=== PATIENT | female | born 1970 ===

== ENCOUNTER → 2020-03-21 | Outpatient (CLI) | payer BC ==
[~2020-03-21] VITALS: Ht 167.6 cm; Wt 65.8 kg
[~2020-03-21] MED LIST: DITROPAN XL10 M1 PO; LISINOPRIL20 MG PO
[2020-03-21 09:48] VITALS: BP 166/65
--- NOTE | 2020-03-21 10:17 | NUR ---
Pain Clinic Assessment: 1. History of Osteoarthritis: Not Applicable History of Rheumatoid Arthritis: Not Applicable 2. Height: 5 ft. 6 in. 167.6 cm. Weight: 145.0 lb. oz. 65.772 kg. Patient's BMI: 23.4 3. Vital Signs: BP: 166/65 Pulse: 80 Resp: 14 Temp: 02 Sat: 98 ECG Mon: 4. Pain Intensity: 8 5. Fall Risk: Dizziness: Y Needs help standing or walking: Y Fallen in the last 3 months: N Fall risk comments: 6. Patient on Blood Thinner: None 7. History of Hypertension: Y 8. Opioid Therapy greater than 6 weeks: N Opiate Contract Signed: 9. Risk Assessment Tool Provided: 5 MODERATE RISK 10. Functional Assessment Tool: 11. Recreational Drug Use: Never Drug Type: Tobacco Use: Current Every Day Smoker Tobacco Type: Cigarettes Amount or Packs/day: 1/2 PACK How Many Years: 33 Alcohol Use: No Frequency: Quant:
--- NOTE | 2020-03-22 10:29 | HPC ---
[facility] [place] [address] PAIN MANAGEMENT CONSULTATION Name: BELINDA BALBUENA Room #: REG MUNA Jose Ramon#: [id number] Admission: 03/21/20 Attend Phys: Osito Marques DO Discharge: Date of : 72 Report #: [id number] THIS REPORT FOR: cc: Arnoldo Medina MD, Alberto MD Johnson,Osito Armas DO ~ DATE OF SERVICE: 03/21/2020 CHIEF COMPLAINT: Low back pain, left buttock pain. HISTORY OF PRESENT ILLNESS: As you know, the patient is a 49-year-old female who reports acute onset of low back pain, left buttock pain that presented 02/23/2020. The patient denies specific injury or trauma that may have led to symptom development. She sought evaluation through the Emergency Department as she was having increase pain. Initial ER visit, she was found to have urinary tract infection and was treated with antibiotics. Apparently, her symptoms did not resolve overnight and the patient then went to second Emergency Department, was evaluated and determined she had kidney stones based on the testing, which showed blood in the urine as well as kidney stones on imaging. She was also diagnosed with suspected lumbar radiculopathy, though this was a secondary diagnosis. The patient at the Emergency Department was referred to our clinic for concerns of lumbar radiculopathy. She has not undergone physical therapy nor has she sought any chiropractic manipulation or massage therapy. She is trialed no avyb-ial-ycwtoyr medications. She was provided hydrocodone at her ER visit and she has been taking that medication without significant benefit. She apparently had some oral steroids at home, tried those medications, but her symptoms did not improve. She makes today's appointment to discuss interventional treatments to address suspected lumbar radiculopathy. The patient indicates today her pain is continuous, steady and constant. She describes the pain as burning, sharp and stabbing. Places current pain score 6/10, daily average at 8/10, worst pain has been 10/10. The patient states her pain is exacerbated with going from standing to sitting position or seated to standing position and walking. Pain is improved with "measured breathing, and just making myself relax." She has been referred to our service by the Emergency Department at [facility] for suspected lumbar radiculopathy with concomitant treatment of therapy for nephrolithiasis. PAST MEDICAL HISTORY: 1. Hypertension. 2. Gallbladder disease. 3. Iatrogenic menopause. 4. Nephrolithiasis. PAST SURGICAL HISTORY: 1. Cholecystectomy. [facility] [address] [place] [address] PAIN MANAGEMENT CONSULTATION Name: BELINDA BALBUENA Room #: REG [facility]#: [id number] Admission: 03/21/20 Attend Phys: Osito Marques DO Discharge: Date of : 72 Report #: [id number] 2. Tubal ligation. 3. Total abdominal hysterectomy. SOCIAL HISTORY: The patient smokes 1/2 to 1 pack tobacco per day, has done so for 33 years. Denies IV or illicit drug use. Denies any chronic alcohol use. 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 She has not been working for the past 2 weeks due to this ongoing pain issue. She is not receiving workmen's compensation nor is she trying to obtain disability benefits. She is not in litigation in regards to pain. She is unaccompanied at today's visit. REVIEW OF SYSTEMS: Positive for fever, night sweats, fatigue and weakness, frequent and recurrent headaches, wearing corrective eyewear, nausea, vomiting, frequent urination, nocturia, incontinence and dribbling to urine, kidney stones, sexual difficulty, left buttock and posterolateral thigh pain. All other review of systems negative per 12-point review of systems other than those listed in history of present illness. Pain impact score 52/70 indicating severe interference of daily activities secondary to pain. ALLERGIES: MORPHINE. CURRENT MEDICATIONS: Lisinopril 20 mg per day, oxybutynin 10 mg once a day. IMAGING: CT lumbar spine obtained on 03/06/2020 shows no evidence of fracture or malalignment. There is gejg-kp-vhxtqyld multilevel spondylosis involving the lower lumbar region. There is mild broad-based disk bulge at L2-L3, L3-L4 with mild central canal narrowing noted at L4-L5. L5-S1 shows moderate disk space narrowing, mild hypertrophy. There is moderate disk osteophyte complex causing ucpp-bj-tkzxolpr bilateral neural foraminal stenosis. There is also noted nephrolithiasis. PHYSICAL EXAMINATION: VITAL SIGNS: Blood pressure 166/65, pulse 80, respiratory rate 14 and unlabored. The patient 98% on room air. Height 5 feet 6 inches tall, weight 145 pounds, BMI calculated 23.4. GENERAL: Well-developed, well-nourished, well-hydrated 49-year-old female, appears older than stated age, smells strongly of tobacco smoke, placing current pain score at 8/10. HEENT: Normocephalic, atraumatic. Pupils are equal, round. Extraocular muscles are intact. She is wearing a mask in compliance with COVID-19 regulations. LUNGS: Appear clear, though there is a prolonged expiratory phase. CARDIOVASCULAR: Regular. No appreciable gallop, no rub. ABDOMEN: Soft. Bowel sounds are present. EXTREMITIES: Show no clubbing, no cyanosis, and no edema. [facility] [place] [address] PAIN MANAGEMENT CONSULTATION Name: BELINDA BALBUENA Room #: REG MUNA Jose Ramon#: [id number] Admission: 03/21/20 Attend Phys: Osito Marques DO Discharge: Date of : 72 Report #: [id number] MUSCULOSKELETAL: Lower extremity strength equal and symmetrical 5/5, intact to light touch from L1 through S2 dermatomes. Seated straight leg raising negative. Supine straight leg raising negative. Shannon's test is negative. Modified Gaenslen's positive for axial low back pain. Ankle clonus negative. Babinski is negative. Gait appears mildly antalgic favoring left lower extremity over right. The patient is using a cane for ambulation, though it does not appear to be medically necessary. ASSESSMENT: 1. Low back pain. 2. Left buttock and posterolateral thigh pain. 3. Nephrolithiasis. 4. Myofascial pain. PLAN: 1. The patient has been referred to our service by the team at [facility]'s ER to address this patient's suspected lumbar radiculopathy. I am unable to elicit any radicular component to the patient's symptoms, though distribution is suggestive of lumbar radiculopathy. She had negative seated straight leg raising and negative supine straight leg raising and provocating testing only showed some axial back pain in today's evaluation. We discussed with the patient in generality the treatment options for lumbar radiculopathy. We also reviewed the patient's CT, which shows some changes at the L5-S1 level that may be contributing to symptoms. After this discussion of the findings of the CT, we then discussed the treatment options we have for lumbar radiculopathy, the following was discussed with the patient today. We discussed physical therapy, stretching exercises, core strengthening techniques. We discussed suggestions in medication management to the primary care team on how to treat symptoms that are present at this time. We discussed epidural injections under fluoroscopic guidance for which the Emergency Department sent the patient to our clinic. We also discussed surgical options with the patient, though these are not recommended at this time. After reviewing risks and benefits of all proposed treatment options, the patient chose to move forward with a lumbar epidural injection under fluoroscopic guidance. The patient was advised that third constitution party payer restrictions require the authorization be obtained before the patient could undergo the epidural injection. The patient also needs to make sure that she can return home after the injection and take it easy for the next 24-48 hours to increase efficacy of the injection. She wishes to undergo the procedure tomorrow if at all possible. We have established the patient a tentative appointment for tomorrow to undergo the first in a series of requested lumbar epidural injections. 2. I recommend strongly the patient will follow up with her PCP in regards to [address] [address] PAIN MANAGEMENT CONSULTATION Name: SREEBELINDA Room #: REG MUNA Albright#: [id number] Admission: 03/21/20 Attend Phys: Osito Marques DO Discharge: Date of : 72 Report #: [id number] the nephrolithiasis. She had blood in the urine based on urine evaluation as well as noted to have elevated white count and further treatment may be necessary. She needs to discuss this with her PCP in followup visit as quickly as possible. 3. No medication changes made at today's visit. If medication is recommended, we will be providing suggestions to the primary care team. 4. We plan to see the patient in followup visit tomorrow for possible lumbar epidural injection. We will hopefully have all authorizations obtained by that visit. 5. We wish to thank the referring ER physician team at [facility] for the opportunity to see the patient in consultation. We will keep you apprised of response to treatment as we address suspected lumbar radiculopathy. Again, we wish to thank you for the opportunity to see the patient in consultation. <ELECTRONICALLY SIGNED> By: Osito Marques DO 03/22/20 [id number] Osito Marques DO /nt
== END ==
LOC: PAIN 06:49
PROVIDERS: ATTEND Anesthesiology Pain Medicine
DX: N20.0 Calculus of kidney (principal); M79.10 Myalgia, unspecified site; Z88.8 Allergy status to other drugs, medicaments and biological substances; Z79.899 Other long term (current) drug therapy

== ENCOUNTER → 2020-03-22 | Outpatient (CLI) | payer BC ==
[~2020-03-22] VITALS: Ht 167.6 cm; Wt 65.8 kg
--- NOTE | ~2020-03-22 | HPC ---
[facility] [place] [address] PAIN MANAGEMENT CONSULTATION Name: BELINDA BALBUENA Room #: REG MUNA LopezDeedeeEleno.#: [id number] Admission: 03/22/20 Attend Phys: Osito Marques DO Discharge: Date of : 72 Report #: [id number] THIS REPORT FOR: cc: Arnoldo Medina MD, Alberto MD Johnson,Osito Armas DO ~ DATE OF SERVICE: 03/22/2020 CHIEF COMPLAINT: Low back pain, left buttock and posterolateral thigh pain. HISTORY OF PRESENT ILLNESS: As you know, the patient is a 49-year-old female, referred to our service by the Emergency Department at [facility] with concerns of lumbar radiculopathy. She was seen in consultation yesterday and provided today's appointment to undergo the first in a series of lumbar epidural injections. She returns with pain level of 8/10. She denies any changes in medical history since our visit of yesterday. She is placing pain today at 8/10, starting in the low back, radiating to the left buttock and posterolateral thigh. ALLERGIES: MORPHINE. CURRENT MEDICATIONS: Lisinopril 20 mg once a day, oxybutynin 10 mg once a day. SOCIAL HISTORY: The patient continues to smoke half pack to 1 pack per day and has done so for 30 years. Denies IV illicit drug use. Denies any chronic alcohol use. 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 IMAGING: No new imaging available. PHYSICAL EXAMINATION: VITAL SIGNS: Blood pressure 130/64, pulse 83, respiratory rate 16 and unlabored. The patient 98% on room air. Height 5 feet 6 inches tall, weight 145 pounds, BMI calculated 23.4. GENERAL: Well-developed, well-nourished, well-hydrated 49-year-old female, appearing stated age. Pain is rated today 8/10. HEENT: Normocephalic, atraumatic. The patient is continuing to wear a mask in compliance with COVID-19 regulations. EXTREMITIES: Show no clubbing, no cyanosis. No appreciable edema. MUSCULOSKELETAL: Lower extremity strength equal and symmetrical, 5/5. Seated straight leg raising negative. Supine straight leg raising negative. Shannon's test negative. Modified Gaenslen's positive for axial low back pain. ASSESSMENT: 1. Low back pain. 2. Left buttock and posterolateral thigh pain. [address] [address] PAIN MANAGEMENT CONSULTATION Name: BELINDA BALBUENA Room #: REG [facility]#: [id number] Admission: 03/22/20 Attend Phys: Osito Marques DO Discharge: Date of : 72 Report #: [id number] 3. Chronic intractable pain. PLAN: 1. The patient returns today in followup visit to undergo lumbar epidural injection under fluoroscopic guidance per the request of the emergency physicians at [facility]. The patient has been advised risks and benefits of this procedure. These risks include but are not necessarily limited to bleeding, bruising, infection, worsening pain, no relief of pain, also risk of temporary or permanent muscle weakness, temporary or permanent nerve damage, possible paralysis and . The patient states understood and wished to proceed. 2. No medication changes made at today's visit. The patient will continue current medical therapy as prior prescribed. 3. We plan to see the patient back in followup visit on an as needed basis. We are hopeful the patient will see good and prolonged benefit. We made a tentative appointment with her in 31 days to discuss possible necessity of a second in the series of epidural injections. PROCEDURE NOTE DESCRIPTION OF PROCEDURE: L5-S1 left paramedian epidural steroid injection under fluoroscopic guidance. This is the first procedure of the first series that the patient is undergoing. After obtaining written consent, the patient was taken back to the fluoroscopy suite, placed in a prone position with pillow under the abdomen to decrease lumbar lordosis. The skin overlying the lumbosacral area was then prepped and draped in aseptic fashion. The L5-S1 vertebral interspace was then identified by AP fluoroscopy. The skin and subcutaneous tissue overlying the target site of injection was anesthetized with 3 mL 1% lidocaine. A 20-gauge 3-1/2 inch Tuohy needle was then advanced under fluoroscopic guidance towards the epidural space using a left paramedian approach. The epidural space was identified using loss of resistance to air technique. After negative aspiration for heme or cerebrospinal fluid, a total of 1 mL of Omnipaque was injected. A lumbar epidurogram was confirmed using both AP and lateral fluoroscopy. After negative aspiration for heme or cerebrospinal fluid, 5 mL of solution containing 2 mL 40 mg per mL, 80 mg total triamcinolone along with 3 mL of lidocaine 1% was injected in increments. Contrast spread was noted in posterior epidural space.. The needle was then retracted approximately half way and needle tract flushed with 1 mL of 1% lidocaine. Needle was then removed. There were no apparent sensory or motor deficits in the lower extremity following the procedure. A sterile bandage was placed over the injection site. The heart rate, pulse, oximetry and blood pressure were continuously monitored [address] [address] PAIN MANAGEMENT CONSULTATION Name: BELINDA BALBUENA Room #: REG [facility]#: [id number] Admission: 03/22/20 Attend Phys: Osito Marques DO Discharge: Date of : 72 Report #: [id number] after the procedure. There were no apparent complications. The patient tolerated the procedure well and was carefully escorted to the recovery room in stable condition. There were no apparent complications. After meeting discharge criteria, the patient was then discharged home. By: [id number] Osito Marques DO /nt
[2020-03-22 13:52] VITALS: BP 130/64
--- NOTE | 2020-03-22 14:12 | NUR ---
Pain Clinic Assessment: 1. History of Osteoarthritis: Not Applicable History of Rheumatoid Arthritis: Not Applicable 2. Height: 5 ft. 6 in. 167.6 cm. Weight: 145.0 lb. oz. 65.772 kg. Patient's BMI: 23.4 3. Vital Signs: BP: 130/64 Pulse: 83 Resp: 16 Temp: 02 Sat: 98 ECG Mon: 4. Pain Intensity: 8 5. Fall Risk: Dizziness: N Needs help standing or walking: Y Fallen in the last 3 months: N Fall risk comments: 6. Patient on Blood Thinner: None 7. History of Hypertension: Y 8. Opioid Therapy greater than 6 weeks: N Opiate Contract Signed: 9. Risk Assessment Tool Provided: 5 MODERATE RISK 10. Functional Assessment Tool: 52/ 11. Recreational Drug Use: Never Drug Type: Tobacco Use: Current Every Day Smoker Tobacco Type: Amount or Packs/day: How Many Years: Alcohol Use: No Frequency: Quant:
== END | disposition home or self-care (01) ==
LOC: PAIN 06:53
PROVIDERS: ATTEND Anesthesiology Pain Medicine
DX: M54.5 Low back pain (principal); G89.29 Other chronic pain; M25.552 Pain in left hip; M79.652 Pain in left thigh; F17.210 Nicotine dependence, cigarettes, uncomplicated; Z98.890 Other specified postprocedural states; Z79.899 Other long term (current) drug therapy; Z88.8 Allergy status to other drugs, medicaments and biological substances